=== PATIENT | male | born 1995 | race Two or more races ===

== ENCOUNTER 2020-09-14 01:14 | Emergency (ER) | payer OTHER ==
[~2020-09-14] VITALS: Ht 180.3 cm; Wt 104.3 kg
[2020-09-14] MEDS ORDERED: POLYMYXIN B-TMP10 ML OP (02:18)
[2020-09-14] MEDS ORDERED: ACETAMINOPHEN650 M2 (03:39)
== END 2020-09-14 03:24 | disposition home or self-care (01) ==
LOC: ER 01:14
DX: H10.12 Acute atopic conjunctivitis, left eye (principal)

== ENCOUNTER 2022-03-02 14:55 | Outpatient (CLI) | payer OTHER ==
[~2022-03-02 14:55] MED LIST: ACETAMINOPHEN650 M2; POLYMYXIN B-TMP10 ML OP
== END 2022-03-02 23:00 | disposition home or self-care (01) ==
LOC: LAB 14:55
PROVIDERS: ATTEND Obstetrics & Gynecology
DX: Z20.828 Contact with and (suspected) exposure to other viral communicable diseases (principal)